=== PATIENT | female | born 1990 | race Caucasian/White ===

== ENCOUNTER → 2024-12-03 | Outpatient (CLI) | payer OTHER, SELFPAY ==
--- NOTE | 2024-12-03 10:40 | RAD_ITS ---
PROCEDURE: LUMBAR SPINE 2 OR 3 VIEWS 12/03/2024 REASON FOR EXAM: PAIN Prior fusion at the L5-S1 level. TECHNIQUE: LUMBAR SPINE 2 OR 3 VIEWS COMPARISON: None FINDINGS: Vertebrae: The patient is status post anterior fusion at the L5-S1 level with prosthetic disc placement. There is evidence of spondylolisthesis of L5 on S1. Discs: Prosthetic disc at the L5-S1 level. Alignment: Grade 1 anterior listhesis of L5 on S1. Other: RAD/Lumbar Spine 2 or 3 Views IMPRESSION: Status post anterior fusion of the L5-S1 level with prosthetic disc placement. Spondylolisthesis at L5-S1 level. Reading Location: [facility]
--- OUTSIDE RECORDS SUMMARY | 2024-12-03 18:47 | XMS RPT_ITS | CCD ---
Author Organization [facility] ion Partnership [facility] Care Team Providers Care English Lecturer Name Role Phone Ed Grant Attending Provider [phone] Ed Grant Attending Unavailable Ed Grant Attending Unavailable NO, PHYSICIAN Primary Care Unavailable KELTON DIAZ Attending Unavailable Ed Grant Referring Provider [phone] Care Physician, Erika Primary Primary Care Provider Unavailable Allergies Allergy Classification Reported Allergen(s) Allergy Type Date of Onset Reaction(s) Facility (4 sources) Latex; Translations: [LATEX] Allergy to substance 10-01-2024 Rash [facility] (1 source) Latex Drug allergy (disorder) 10-01-2024 [facility] Repository Medications Current Medications Medication Drug Class(es) Dates Sig (Normalized) Sig (Original) metaxalone 800 mg oral tablet (1 source) Start: 12-03-2024 take 1 tablet by mouth three times daily as needed for pain Metaxalone 800 mg tablet Active 800 mg PO THREE TIMES A DAY as needed for muscle pain 20 0 December 03, 2024 12:00am Completed/Discontinued Medications Medication Drug Class(es) Dates Sig (Normalized) Sig (Original) acetaminophen 325 mg oral tablet (3 sources) Start: 10-01-2024 End: 12-03-2024 take 1 tablet by mouth once as needed Acetaminophen (Tylenol) 325 mg tablet Discontinued 325 mg PO ONCE as needed October 01, 2024 12:00am December 03, 2024 10:24am Problems Problem Classification Problem Date Documented Da te Episodic/Chronic Administrative/social admission (6 sources) Patient encounter status; Translations: [Encounter for pre-employment examination] 10-01-2024 Episodic Sprains and strains (4 sources) Strain of unspecified quadriceps muscle, fascia and tendon, initial encounter; Translations: [Low back strain] Onset: 11-05-2024 Episodic Superficial injury; contusion (3 sources) Contusion of buttock; Translations: [Contusion of lower back and pelvis, initial encounter] Episodic Unclassified (1 source) Strain of lumbar region Unclassified (1 source) S30.0XXA - Contusion of lower back and pelvis, initial encounter,S39.012A - Strain of muscle, fascia and tendon of lower back, initial encounter Results Test Name Value Interpretation Reference Range Facil ity ED Prov Noteon 11-05-2024 ED Prov Note [facility] EMERGENCY DEPARTMENT ATTENDING NOTE: NAME: Barbara Dunham CSN: [id number] 33 y.o. PCP: No, Physician History: Chief Complaint: Leg Pain HPI: The history was obtained from the patient. Barbara is a 33 y.o. female who presents with a chief complaint of Leg Pain. Per triage Patient endorsing sharp leg pain on right side that started today on the top of her thigh. Patient denies it being red or swollen. Denies injury/trauma Pain noted this am Difficulty getting in and out of car, climbing stairs Right thigh No previous episodes No known injury Tylenol earlier w/o relief No spasm Pain is constant, stabbing mid anterior thigh Sometimes radiates to groin Just started [place] walking a lot, always on feet Abot 2 weeks in PMHx: History reviewed. No pertinent past medical history. PMSx: Past Surgical History: Procedure Laterality Date SPINAL FUSION L4 and L5 FAM. Hx: History reviewed. No pertinent family history. SOC. Hx: Social History [1] MEDs: No current outpatient medications on file prior to encounter. ALL: Allergies[2] ROS: Positives and pertinent negatives as per HPI. All other systems were reviewed and are negative. Physical Exam: Patient Vitals for the past 24 hrs: BP Temp Temp src Pulse Resp SpO2 Height Weight 11/05/24 2107 123/69 -- -- 84 16 98 % -- -- 11/05/24 1559 (!) 154/86 98.1 degrees F (36.7 degrees C) Oral 96 18 97 % 5' 7 95.3 kg (210 lb) Physical Exam Vitals and nursing note reviewed. Constitutional: General: She is not in acute distress. Appearance: Normal appearance. She is well-developed. She is not toxic-appearing. HENT: Head: Normocephalic and atraumatic. Nose: Nose normal. Eyes: General: No scleral icterus. Conjunctiva/sclera: Conjunctivae normal. Musculoskeletal: Right lower leg: No swelling. Left lower leg: No swelling. Comments: No obvious evidence of long bone fractures, or major joint dislocations. Patient's primary pain is over the middle anterior of her right thigh she states that it radiates up into the inguinal canal region on the right there is no overlying skin changes No erythema edema induration ecchymosis etc. Diffuse tenderness to palpation over the entirety of the quadriceps muscle Pulmonary: Effort: Pulmonary effort is normal. No respiratory distress. Skin: Coloration: Skin is not jaundiced or pale. Neurological: General: No focal deficit present. Mental Status: She is alert. She is not disoriented. Psychiatric: Behavior: Behavior normal. Laboratory & Radiological Imaging (if done): Labs Reviewed - No data to display No orders to display ED Course / Medical Decision Making: I did personally review Barbara's past medical history, surgical history, social history, as well as family history (when relevant). In this case, I also oversaw the her drug management by reviewing her medication list, allergy list, as well as the medications that I prescribed during the ED course and/or recommended as an out-patient (including possible OTC medications such as acetaminophen, NSAIDs , etc). Her past medical problem list included: Active Ambulatory Problems Diagnosis Date Noted No Active Ambulatory Problems Resolved Ambulatory Problems Diagnosis Date Noted No Resolved Ambulatory Problems No Additional Past Medical History ED MEDICATIONS GIVEN: Medications - No data to display After reviewing the items above, I did look at previous medical documentation, such as recent hospitalizations, office visits, and/or recent consultations with PCP/specialist. SDOH: Another factor that I considered in Barbara's care was her Social Determinants of Health (SDOH). During this ED encounter, she did NOT appear to have any significant issues identified. LAB TESTING: Ancillary lab testing: None indicated RADIOLOGY: I did consider radiological studies for Barbara's care today: None indicated DIFFERENTIAL DIAGNOSES: Muscle strain DVT neuralgia paresthetica hip bursitis piriformis syndrome septic arthritis obturator nerve entrapment avascular necrosis of the hip sciatica, as well as other etiologies. ED COURSE: 33-year-old female presents the emergency room for right anterior thigh pain Patient does endorse that she has had a recent increase in activity she went from not working to having a job over the past 2 weeks for which she walks a lot She was having bilateral leg pain that lessened over time however now has a sudden increase this morning in the right anterior leg pain She was told by someone to have evaluation for DVT Physical exam is remarkable for tenderness to palpation over the entirety of the quad with no overlying skin changes swelling etc. Decision made the patient we will forego any labs or imaging at this point in time Recommended the patient use rest ice compression elevation as well as Tylenol and ibuprofen Patient was discharged home in (more content not included)... Normal [facility] Office Visit Reporton 2024 Office Visit Report [facility] [address] [place] [address] OFFICE VISIT Date of Service: 10/01/24 MR#: [id number] Acct: [id number] Patient: BARBARA DUNHAM Rep #: [id number] : 1990 Provider: SONIA Bermudez Age/Sex: 33/F Location: [facility] Status: Signed Intake Intake Visit Reasons: PE/NON DOT/DRUG SCREEN/CCHO Allergies latex Allergy (Verified 10/01/24 15:08) Rash Office Procedures [facility] Billing Sheet Testing Pre-Employment Drug Screen [facility] Home: Yes Pre-Employment PE: Yes 10/15/24 1725 Date Ed Courtney Signature: Date (if applicable) CC: Normal [facility] Urgent Care Visit Reporton 0 10-01-2024 Urgent Care Visit Report [facility] [address] , [address] [place] [address] OFFICE VISIT Date of Service: 10/01/24 MR#: [id number] Acct: [id number] Name: BARBARA DUNHAM Rep #: [id number] : 1990 Provider: SONIA Bermudez Age/Sex: 33/F Location: [facility] Status: Signed Intake Intake Visit Reasons: PE/NON DOT/PHYSICAL/CCHO Allergies latex Allergy (Verified 10/01/24 15:08) Rash Medications ???Medication ???Instructions ???Recorded ???Confirmed ???Type acetaminophen 325 mg tablet 325 mg PO ONCE PRN 10/01/24 History (Tylenol) Nurse's Note: pre employment physical PFSH Medical History (Updated 10/01/24 @ 15:13 by Ed SCOTT, PA) Physical exam, pre-employment Surgical History (Updated 10/01/24 @ 15:11 by Elvin Youngblood) H/O spinal fusion H/O Spinal surgery Family History (Updated 10/01/24 @ 15:10 by Elvin Youngblood) Other Alzheimers disease Colon cancer Diabetes Hypertension Kidney disease Lung cancer HPI HPI Details: BARBARA DUNHAM, is a 33 F who presents to the office today for Office Procedures Physical Exam Coding PE Coding Pre-employment PE: Yes Coding Level of Care Code Attention Engineering Faculty Member Diagnoses Physical exam, pre-employment Z02.1 Assessment and Plan Assessment and Plan (1) Physical exam, pre-employment: Status: Acute 10/01/24 1544 Date Ed SCOTT Cosigner Signature: Date (if applicable) CC: Normal [facility] Vital Signs Date Time Vital Sign Value Performing Clinician Faci lity 12-03-2024 10:29-0400 Body height 170.18 cm Ed SCOTT Work Phone: [facility] 12-03-2024 10:29-0400 Body mass index (BMI) [Ratio] 34.9 kg/m2 Ed SCOTT Work Phone: [facility] 12-03-2024 10:29-0400 Body temperature 97.6 [degF] Ed SCOTT Work Phone: [facility] 12-03-2024 10:29-0400 Body weight 101.15 kg Ed SCOTT Work Phone: [facility] 12-03-2024 10:29-0400 Heart rate 78 /min Ed SCOTT Work Phone: [facility] 12-03-2024 10:29-0400 SaO2% (BldA) [Mass fraction] 98 % Ed SCOTT Work Phone: [facility] Encounters Encounter Date Encounter Type Care Provider Facility Start: 12-03-2024 End: 12-03-2024 ambulatory Ed SCOTT Work Phone: [facility] Start: 12-03-2024 End: 12-03-2024 Patient encounter procedure Ed SCOTT [facility] Work Phone: Start: 11-05-2024 End: 11-05-2024 Emergency department patient visit PHYSICIAN [facility] Start: 10-01-2024 End: 10-01-2024 Patient encounter procedure Ed SCOTT [facility] Work Phone: Start: 10-01-2024 End: 10-01-2024 ambulatory Ed SCOTT [facility] Work Phone: Procedures Date Procedure Procedure Detail Performing Clinician Start: 12-03-2024 X-ray of lumbar spin e, two or three views Ed SCOTT Work Phone: Payers Date Payer Category Payer Self-pay Unknown [id number] Unknown [id number] Unknown [id number] Social History Date Type Detail Facility Tobacco smoking stat [facility] Unknown if ever smoked [employer] Work Phone: Start: 1990 Sex Assigned At Female [facility] Evaluation note 10-01-2024 Note Date & Type Note Facility 10-01-2024 Evaluation note Diagnosis Onset Date Resolution Physical exam, pre-employment acute October 01, 2024 3:07pm Contusion of buttock acute Augu 2024 10:20am Lumbar strain acute November 10:20am [facility] Work Phone: Evaluation note Note Date & Type Note Facility Evaluation note Diagnosis Onset Date Resolution Physical exam, pre-employment acute October 01, 2024 3:07pm [facility] Work Phone: Hospital Discharge instructions Note Date & Type Note Facility Hospital Discharge instructions Ambulatory OrdersOrthopedics Location: None Selected [facility] Work Phone: Reason for referral (narrative) Note Date & Type Note Facility Reason for referral (narrative) No reason for referral information available [facility] Work Phone: Chief Complaint and Reason for Visit Chief Complaint Admit Date PE/NON DOT/PHYSICAL/CCHO October 01, 2024 3:07pm PE/NON DOT/DRUG SCREEN/CCHO October 01, 2 025 3:18pm Reason for Visit Admit Date Physical exam, pre-employment October 01, 2024 3:07pm Chief Complaint Admit Date PE/NON DOT/PHYSICAL/CCHO October 01, 2024 3:07pm PE/NON DOT/DRUG SCREEN/CCHO October 01, 2 025 3:18pm LOWER BACK & BUTTOCK PAIN FROM FALL/ [facility] December 03, 2024 10:20am Pain/ WORK[employer]. December 03, 2024 10 :37am Reason for Visit Admit Date Physical exam, pre-employment October 01, 2024 3:07pm Contusion of buttock December 03, 2024 1 0:20am Lumbar strain December 03, 2024 10 :20am Family History Relationship Condition Age at Onset Recorded Date/T anusha Not Specified Malignant neoplasm of colon Unknown Diabetes mellitus Unknown Alzheimer's disease Unknown Kidney disorder Unknown Malignant neoplasm of lung Unknown Hypertension Unknown Summary Purpose Advance Directives No Advanced Directives Records FoundNo Advanced Directives Records Found Additional Source Comments Care Teams (unrecognized sec tion and content) Team Status: Inactive Member Role Status Dates SONIA Mendez Attending Provider Active Start: October 01, 2024 End: October 01, 2024 Team Status: Active Member Role Status Dates SONIA Mendez Attending Provider Active Start: October 01, 2024 Team Status: Active Member Role/Relationship Status Dates No Primary Care Physician Primary Care Provider Active Team Status: Inactive Member Role/Relationship Status Dates SONIA Mendez Attending Provider Active Start: October 01, 2024 End: October 01, 2024 Team Status: Inactive Member Role/Relationship Status Dates SONIA Mendez Attending Provider Active Start: October 01, 2024 End: October 01, 2024 Team Status: Inactive Member Role/Relationship Status Dates SONIA Mendez Attending Provider Active Start: December 03, 2024 End: December 03, 2024 Team Status: Active Member Role/Relationship Status Dates SONIA Mendez Attending Provider Active Start: December 03, 2024 SONIA Mendez Referring Provider Active Start: December 03, 2024 No Primary Care Physician Primary Care Provider Active Start: December 03, 2024 Goals (unrecognized section and content) Goals may be documented in a n alternate sectionGoals may be documented in an alternate sectionGoals may be documented in an alternate section INFORMATION SOURCE (unrecogn ized section and content) DATE CREATED AUTHOR 10/20/2024 [facility] DATE CREATED AUTHOR AUTHOR'S ELLEN ATBERENICE 11/12/2024 [facility] FOR RECORDS PERTAINING TO PATIENTS WHO ARE OR HAVE BEEN ENROLLED IN A CHEMICAL DEPENDENCY/SUBSTANCEABUSE PROGRAM, SOME INFORMATION MAY BE OMITTED. This clinical summary was aggregated from multiple sources. Caution should be exercised in using it in the provision of clinical care. This summary normalizes information from multiple sources, and as a consequence, information in this document may materially change the coding, format and clinical context of patient data. In addition, data may be omitted in some cases. CLINICAL DECISIONS SHOULD BE BASED ON THE PRIMARY CLINICAL RECORDS. [facility]. provides no warranty or guarantee of the accuracy or completeness of information in this document.
== END | disposition home or self-care (01) ==
LOC: MTRAD 10:40
PROVIDERS: Referring Provider Physician Assistant; Visit Provider Physician Assistant
DX: M54.9 Dorsalgia, unspecified (principal)
CPT/HCPCS: 72100

== ENCOUNTER 2025-01-28 08:00 | Outpatient (RCR) | payer OTHER, SELFPAY ==
--- NOTE | 2024-12-24 07:57 | HP.PTEVAL ---
Patient's Visit Information Visit Information Visit Information: BARBARA ALEX is a 34 year old F referred to Physical Therapy by SONIA Hicks with a diagnosis of Lumbar strain. Date of Evaluation: 12/20/24 Physical Therapist: Aris Rader DPT Visit Plan Frequency: 2-3x /Week Duration: 6 Weeks Plan: 1) Neutral spine core strengthening, back extensor strengthening 2) lumbar ROM into extension as tolerated 3) may use IFC if needed to calm symptoms in beginning. 4) progress to BLE and functional strengthening once tolerating. Pt. has a previous lumbar fusion Subjective Subjective: PT. is here today for her initial evaluation with diagnosis of Lumbar strain. Pt. reports being at work on sitting on a swing and it collapsing and her falling onto her back. Pt. has had increased pain since. Pt. has a history of lumbar fusion. She also reports that one of the screws has broken. Pt. has had increased pain since. She is mostly staying at home and not doing much right now. Pt. is currently off work. No radicular symptoms noted. Pt. reports having no weakness in her LEs either. Pt. does report that her symptoms are improving, but still having trouble. Symptoms are always there, but standing and walking does seem to be a bit worse. Pt. is hopeful to reduce symptoms in order to get back to all work activities without limitations. Pain Lumbar spine: Pain Intensity (Out of 10): 4 Pain Intensity Range: 2 and 6 Objective Objective: POSTURE: Pt. has a general flexed posture. BUt is able to correct with VCing. PALPATION: Pt. has tenderness along bilateral lumbar erector spinae and with spring testing throughout lumbar spine. NEURO: normal ROM: lumbar spine: flexion mod loss increase NW, ext mod loss increase NW, SB min/nil loss NE, rotation min loss NE bilat. PT. has nightness in B HS as well. MMT: PT. has normal BLE strength. Pt. has poor+ core strength. lumbar extension poor. GAIT: Pt. has guarded posture with gait, limited arm swing noted. Balance/Special Test Scores Oswestry Low Back Score: 20 Goals Goal 1:: LTG: PT. to have increased core and lumbar extensor strength to fair allowing for increased tolerance to work activities. Goal Time Frame: 4-6 Weeks Goal 2:: LTG: Pt. to have increased lumbar ROM to full without increase in symptoms. Goal Time Frame: 4-6 Weeks Goal 3:: LTG: Pt. to ambulate around the house without increase in symptoms. Goal Time Frame: 4-6 Weeks Goal 4:: LTG: Pt. to complete all work activities without increase in symptoms. Goal Time Frame: 4-6 Weeks Rehabilitation Potential Physical Therapy Diagnosis: pt. has signs and symptoms consistent with lumbar strain. Pt. has limited lumbar extension ROM and marked weakness. Pt. has would benefit from PT to address the above limitations progressing back to all work activities. Rehabilitation Potential: Excellent Anticipated Interventions Patient/Client Instruction: Educate patient on: Condition, Plan of Care, Risk Factors and Benefits of Fitness Program For the Purpose of:: To foster healthy habits, To improve decision making, To facilitate caregiver knowledge, To improve self management, To prevent re-injury and To improve ability to perform tasks related to life management Therapeutic Exercise to Include: Strength training, Power training, Postural training, Flexibilty training, Passive ROM, Active ROM and Dynamic Lumbar Stabilization For the Purpose of:: To decrease pain, To decrease swelling/inflammation, To increase ROM, To improve nutrient delivery to tissue, To increase oxygenation perfusion, To improve muscle performance and motor function, To improve ability to perform ADL's, To increase tolerance to activity/condition/position, To decrease soft tissue restriction, To increase flexibility/ROM and To improve endurance Manual Therapy Techniques to Include: Functional dry needling and Soft tissue mobilization For the Purpose of:: To decrease pain, To decrease swelling/inflammation, To increase ROM, To improve nutrient delivery to tissue, To improve health of tissue, To decrease soft tissue restriction and To increase flexibility/ROM TENS: Yes IF ES: Yes Cryotherapy (ice pack, ice massage): Yes For the Purpose of:: To decrease pain, To decrease swelling/inflammation, To increase ROM, To improve nutrient delivery to tissue, To increase oxygenation perfusion and To improve muscle performance and motor function Text: Thank you for the opportunity to evaluate your patient. For Medicare and Medicare HMO plans, please review the plan of care and approve it. It will need to be FAXED BACK to us at [phone] for Medicare purposes. For Medicare only, by signing this I certify the plan of care. Please let me know if there are questions or concerns regarding this plan of care. Physician Signature: Date:
--- NOTE | 2025-01-28 08:30 | HP.PTREVAL ---
Re-Evaluation Intro: SONIA Hicks, It has been my pleasure to treat BARBARA ALEX over the last 12 visits for Lumbar strain. Please see the progress note below for an update on the physical therapy plan of care! Subjective Subjective: Pt. reports overall being about 0% better. Pt. is still having increased pain with most ADLs and walking. Pt. reports 4/10 pain currently. Pain is mostly on the L side, no radicular symptoms noted. No NT noted Objective Objective/Function: ROM: LUMBAR: flexion mod loss increase NW, ext min loss (tightness), SB nil loss NE, rotation nil loss NE. NEURO: normal MMT: 5/5 throughout. Core strength: fair, lumbar extension strength fair. Pt. reports mornings is worse, does loosen up as she starts moving, Pt. reports disrupted sleep as well. She is having MRI next week and hopefully can help determine best course of action. Pt. is not progressing like I would have hoped with core strenthening and stretching. Further assessment would be helpful. Plan Plan Plan: Pt. is to have MRI next week. PT. is to see physician as well to determine best course of action. Pt. has not had much improvement with PT thus far. Pt. will be on hold until MRI and if further PT is requested new C9 would be needed. Balance/Gait/Functional tests Balance/Special Test Scores Oswestry Low Back Score: 20 Goals Goals Goal 1:: LTG: PT. to have increased core and lumbar extensor strength to fair allowing for increased tolerance to work activities. Goal Time Frame: 4-6 Weeks Goal Progress: Progressing Goal 2:: LTG: Pt. to have increased lumbar ROM to full without increase in symptoms. Goal Time Frame: 4-6 Weeks Goal Progress: Not Progressing Goal 3:: LTG: Pt. to ambulate around the house without increase in symptoms. Goal Time Frame: 4-6 Weeks Goal Progress: Progressing Goal 4:: LTG: Pt. to complete all work activities without increase in symptoms. Goal Time Frame: 4-6 Weeks Goal Progress: Not Progressing Anticipated Interventions Anticipated Interventions Patient/Client Instruction: Educate patient on: Condition, Plan of Care, Risk Factors and Benefits of Fitness Program For the Purpose of:: To foster healthy habits, To improve decision making, To facilitate caregiver knowledge, To improve self management, To prevent re-injury and To improve ability to perform tasks related to life management Therapeutic Exercise to Include: Strength training, Power training, Postural training, Flexibilty training, Passive ROM, Active ROM and Dynamic Lumbar Stabilization For the Purpose of:: To decrease pain, To decrease swelling/inflammation, To increase ROM, To improve nutrient delivery to tissue, To increase oxygenation perfusion, To improve muscle performance and motor function, To improve ability to perform ADL's, To increase tolerance to activity/condition/position, To decrease soft tissue restriction, To increase flexibility/ROM and To improve endurance Manual Therapy Techniques to Include: Functional dry needling and Soft tissue mobilization For the Purpose of:: To decrease pain, To decrease swelling/inflammation, To increase ROM, To improve nutrient delivery to tissue, To improve health of tissue, To decrease soft tissue restriction and To increase flexibility/ROM TENS: Yes IF ES: Yes Cryotherapy (ice pack, ice massage): Yes For the Purpose of:: To decrease pain, To decrease swelling/inflammation, To increase ROM, To improve nutrient delivery to tissue, To increase oxygenation perfusion and To improve muscle performance and motor function Re-Evaluation Ending Re-evaluation ending: Please do not hesitate to contact me at [phone] by phone or if you have questions or concerns regarding this new plan of care! Sincerely, Aris Rader DPT
== END 2025-01-28 19:00 | disposition home or self-care (01) ==
LOC: PT 08:00
PROVIDERS: Referring Provider Student in an Organized Health Care Education/Training Program; Visit Provider Student in an Organized Health Care Education/Training Program
DX: S39.012D Strain of muscle, fascia and tendon of lower back, subsequent encounter (principal)
CPT/HCPCS: 97110; 97161; 97530

== ENCOUNTER → 2025-02-03 | Outpatient (CLI) | payer OTHER, SELFPAY | END | disposition home or self-care (01) | LOC: OPMRI 07:01 | PROVIDERS: Referring Provider Physician Assistant; Visit Provider Physician Assistant | DX: M54.50 Low back pain, unspecified (principal) | CPT/HCPCS: 72158; A9575 ==